=== PATIENT | female | born 1995 | race African-American/Black ===

== ENCOUNTER 2016-02-13 21:48 | Emergency (ER) | payer OTHER ==
[~2016-02-13] VITALS: Ht 177.8 cm; Wt 142.9 kg
[~2016-02-13 21:48] MED LIST: ALBUTEROL0.09 MG/Ac INH; EC NAPROSYN500 MG PO; MELOXICAM7.5 MG PO; NKHM PO; PERCOCET 325 MG1 TA6 PO; PREDNICOT20 MG PO; PROAIR HFA AER; ULTRAM50 MG PO; ZITHROMAX Z PA250 MG PO; ZYRTEC10 M1 PO
[2016-02-13] MEDS ORDERED: SEROQUEL50 MG PO (21:58)
[2016-02-13] MEDS ORDERED: ZOLOFT25 MG PO (21:59)
[2016-02-13] MEDS ORDERED: PROAIR HFA8.5 GM INH (21:59)
== END 2016-02-13 23:20 | disposition home or self-care (01) ==
LOC: ED 21:48
DX: S06.2X0A Diffuse traumatic brain injury without loss of consciousness, initial encounter (principal); S50.12XA Contusion of left forearm, initial encounter; V89.2XXA Person injured in unspecified motor-vehicle accident, traffic, initial encounter; Y93.89 Activity, other specified; Y92.413 State road as the place of occurrence of the external cause; Y99.9 Unspecified external cause status

== ENCOUNTER 2016-04-26 15:18 | Emergency (ER) | payer OTHER ==
[~2016-04-26] VITALS: Ht 180.3 cm; Wt 140.6 kg
[~2016-04-26 15:18] MED LIST changes: +PROAIR HFA8.5 GM INH; +SEROQUEL50 MG PO; +ZOLOFT25 MG PO
[2016-04-26] MEDS ORDERED: ZOFRAN ODT4 MG SL (16:37)
[2016-04-26] MEDS ORDERED: ZITHROMAX250 MG PO (16:37)
[2016-04-26] MEDS ORDERED: PREDNISONE10 MG PO (16:39)
== END 2016-04-26 16:46 | disposition home or self-care (01) ==
LOC: ED 15:18
DX: J40 Bronchitis, not specified as acute or chronic (principal); B34.9 Viral infection, unspecified; F17.200 Nicotine dependence, unspecified, uncomplicated

== ENCOUNTER 2016-07-27 15:44 | Emergency (ER) | payer OTHER ==
[~2016-07-27] VITALS: Ht 180.3 cm; Wt 140.6 kg
[~2016-07-27 15:44] MED LIST changes: +PREDNISONE10 MG PO; +ZITHROMAX250 MG PO; +ZOFRAN ODT4 MG SL
[2016-07-27] MEDS ORDERED: TRI-SPRINTEC 281 TA2 PO (15:51)
[2016-07-27] MEDS ORDERED: AUGMENTIN 875-875 MG PO (16:26)
== END 2016-07-27 17:06 | disposition home or self-care (01) ==
LOC: ED 15:44
DX: J01.00 Acute maxillary sinusitis, unspecified (principal); H65.111 Acute and subacute allergic otitis media (mucoid) (sanguinous) (serous), right ear; F17.200 Nicotine dependence, unspecified, uncomplicated; Z79.899 Other long term (current) drug therapy

== ENCOUNTER 2016-08-08 10:24 | Inpatient (IN) | payer OTHER ==
[~2016-08-08] VITALS: Ht 180.3 cm; Wt 137.2 kg
--- NOTE | ~2016-08-08 | O ---
[place], [place] OPERATIVE NOTE [facility]: [id number] UNIT #: [id number] ROOM: [id number] DOCTOR: ABDELRAHMAN PARKER,SHILOH BIRTHDATE: [birth year] DOS: 08/11/2016 HISTORY OF PRESENT ILLNESS: This is 21-year-old female who has presented with abdominal pain, undergoing investigation. The patient expresses with diarrhea. Previous stool studies have been unremarkable. PROCEDURE: Today's procedure part of investigation is colonoscopy plus biopsy. PREMEDICATION: Versed and Diprivan. SCOPE: Olympus forwarding colonoscope 10L video. REPORT: After putting the patient in the left lateral position and after application of lubricant to rectal pouch and digital examination, scope was introduced. Thereafter, under direct visualization, I advanced through the length of colon without difficulty. Evidence of colitis was noticed. This is suspected to be C. diff, multiple biopsies obtained. Air was suctioned out. The patient was extubated, tolerated procedure well. IMPRESSION: Nonspecific colitis, ruling out C. diff colitis with pseudomembranous formation. PLAN AND DISCUSSION: Awaiting biopsy report. We will treat like C. diff so far till the data available. SHILOH QUICK MD CM:OPRECORD:OPERATIVE NOTE [id number] SHILOH QUICK MD 09/01/16 1118 interface
[~2016-08-08 10:24] MED LIST changes: +AUGMENTIN 875-875 MG PO; +TRI-SPRINTEC 281 TA2 PO
[2016-08-08 10:32] VITALS: BP 136/78
[2016-08-08 11:16] LABS: BASO # 0.1 10*3/uL (0.0-0.1); BASO % 0.4 % (0.0-1.0); EOS # 0.1 10*3/uL (0.0-0.4); HEMATOCRIT 39.6 % (37.0-47.0); HEMOGLOBIN 12.9 g/dl (12.0-16.0); IG # 0.1 10*3/uL (0.0-0.1); LYMPH # 1.9 10*3/uL (1.3-4.4); LYMPH % 13.6 % (27.0-41.0); MEAN CELL VOLUME 80.3 fl (81.0-99.0); MEAN CORPUSCULAR HGB 26.2 pg (27.0-31.0); MEAN CORPUSCULAR HGB CONC 32.6 g/dl (33.0-37.0); MEAN PLATELET VOLUME 10.1 fl (9.6-12.3); MONO # 0.8 10*3/uL (0.1-1.0); MONO % 5.5 % (3.0-9.0); NEUT # 11.3 10*3/uL (2.3-7.9); NEUT % 79.1 % (47.0-73.0); PLATELET COUNT AUTOMATED 411 10*3/uL (130-400); RED BLOOD COUNT 4.93 10*6/uL (4.10-5.10); RED CELL DISTRI WIDTH 13.7 % (0-14.5); WHITE BLOOD COUNT 14.2 10*3/uL (4.8-10.8)
[2016-08-08 11:20] LABS: BILIRUBIN 1+ (NEGATIVE); BLOOD 1+ (NEGATIVE); CLARITY TURBID (CLEAR); COLOR YELLOW (YELLOW); GLUCOSE NEGATIVE (NEGATIVE); KETONE NEGATIVE (NEGATIVE); LEUKO ESTERASE NEGATIVE (NEGATIVE); NITRITE NEGATIVE (NEGATIVE); PROTEIN TRACE (NEGATIVE); SPECIFIC GRAVITY >= 1.030 (1.005-1.030); UROBILINOGEN 0.2 E.U./dl (0.2-1.0)
[2016-08-08 11:29] LABS: ALBUMIN 3.5 gm/dl (3.1-4.5); ALKALINE PHOSPHATASE 90 U/L (45-117); BILIRUBIN, TOTAL 0.3 mg/dl (0.2-1.0); BUN 10 mg/dl (7-24); CARBON DIOXIDE 26 mmol/L (21-32); CHLORIDE 107 mmol/L (98-107); EST GLOM FILT AFRICAN AMERICAN > 60 ml/min; GLUCOSE 103 mg/dL (65-99); POTASSIUM 3.8 mmol/L (3.5-5.1); SGOT/AST 12 IU/L (3-35); SGPT/ALT 24 U/L (12-78); SODIUM 142 mmol/L (136-145); TOTAL PROTEIN 7.9 gm/dL (6.4-8.2)
[2016-08-08 11:33] LABS: BACTERIA 4+; URINE REFLEX COMMENT YES (NO)
[2016-08-08 12:39] VITALS: BP 128/79
[2016-08-08 13:30] VITALS: BP 122/66
[2016-08-08 16:00] VITALS: BP 132/82
[2016-08-08 20:00] VITALS: BP 137/77
[2016-08-09] VITALS: BP 121/60
[2016-08-09 07:12] LABS: BASO % 0.2 % (0.0-1.0); EOS # 0.2 10*3/uL (0.0-0.4); EOS % 2.6 % (1.0-4.0); HEMATOCRIT 33.7 % (37.0-47.0); HEMOGLOBIN 10.9 g/dl (12.0-16.0); LYMPH # 2.1 10*3/uL (1.3-4.4); LYMPH % 23.6 % (27.0-41.0); MEAN CELL VOLUME 82.2 fl (81.0-99.0); MEAN CORPUSCULAR HGB 26.6 pg (27.0-31.0); MEAN CORPUSCULAR HGB CONC 32.3 g/dl (33.0-37.0); MEAN PLATELET VOLUME 10.4 fl (9.6-12.3); MONO # 0.6 10*3/uL (0.1-1.0); MONO % 6.4 % (3.0-9.0); NEUT # 5.9 10*3/uL (2.3-7.9); NEUT % 66.7 % (47.0-73.0); RED CELL DISTRI WIDTH 13.7 % (0-14.5); WHITE BLOOD COUNT 8.8 10*3/uL (4.8-10.8)
[2016-08-09 07:14] LABS: PLATELET COUNT AUTOMATED 299 10*3/uL (130-400)
[2016-08-09 07:17] LABS: ALBUMIN 2.7 gm/dl (3.1-4.5); BILIRUBIN, TOTAL 0.3 mg/dl (0.2-1.0); BUN 5 mg/dl (7-24); C-REACTIVE PROTEIN 2.89 MG/DL (0-0.3); CARBON DIOXIDE 22 mmol/L (21-32); CHLORIDE 109 mmol/L (98-107); CHOLESTEROL 152 mg/dL (<200); EST GLOM FILT AFRICAN AMERICAN > 60 ml/min; GLUCOSE 84 mg/dL (65-99); MAGNESIUM 1.6 mg/dL (1.5-2.1); PHOSPHOROUS 3.4 mg/dL (2.5-4.9); POTASSIUM 3.3 mmol/L (3.5-5.1); SGOT/AST 12 IU/L (3-35); SGPT/ALT 20 U/L (12-78); SODIUM 141 mmol/L (136-145); TRIGLYCERIDES 54 mg/dl (<150); VLDL CHOLESTEROL 11 mg/dL (6-40)
[2016-08-09 07:18] LABS: ALKALINE PHOSPHATASE 68 U/L (45-117); TOTAL PROTEIN 6.2 gm/dL (6.4-8.2)
[2016-08-09 07:26] LABS: FREE T4 1.25 ng/dl (0.76-1.46); THYROID STIM HORMONE (HS) 0.962 uIU/ml (0.358-4.75)
[2016-08-09 07:27] LABS: HEMOGLOBIN A1c 5.2 % (4.8-5.6)
[2016-08-09 07:32] LABS: HDL CHOLESTEROL 35 mg/dl (40-60); LDL CHOLESTEROL 106 mg/dL (9-159)
[2016-08-09 08:00] VITALS: BP 124/68
[2016-08-09 08:05] LABS: FOLIC ACID 14.57 ng/mL (>5.38)
[2016-08-09 12:00] VITALS: BP 126/72
[2016-08-09 16:00] VITALS: BP 135/95
[2016-08-09 20:00] VITALS: BP 148/58
[2016-08-10] VITALS: BP 127/78
[2016-08-10 06:10] LABS: BASO % 0.4 % (0.0-1.0); EOS # 0.3 10*3/uL (0.0-0.4); EOS % 3.8 % (1.0-4.0); HEMATOCRIT 32.1 % (37.0-47.0); HEMOGLOBIN 10.3 g/dl (12.0-16.0); LYMPH # 2.8 10*3/uL (1.3-4.4); LYMPH % 37.5 % (27.0-41.0); MEAN CELL VOLUME 81.9 fl (81.0-99.0); MEAN CORPUSCULAR HGB 26.3 pg (27.0-31.0); MEAN CORPUSCULAR HGB CONC 32.1 g/dl (33.0-37.0); MEAN PLATELET VOLUME 10.1 fl (9.6-12.3); MONO # 0.5 10*3/uL (0.1-1.0); MONO % 6.6 % (3.0-9.0); NEUT # 3.9 10*3/uL (2.3-7.9); NEUT % 51.4 % (47.0-73.0); PLATELET COUNT AUTOMATED 265 10*3/uL (130-400); RED BLOOD COUNT 3.92 10*6/uL (4.10-5.10); RED CELL DISTRI WIDTH 13.7 % (0-14.5); WHITE BLOOD COUNT 7.6 10*3/uL (4.8-10.8)
[2016-08-10 06:48] LABS: ALBUMIN 2.6 gm/dl (3.1-4.5); BUN 4 mg/dl (7-24); CARBON DIOXIDE 24 mmol/L (21-32); CHLORIDE 110 mmol/L (98-107); GLUCOSE 84 mg/dL (65-99); MAGNESIUM 1.7 mg/dL (1.5-2.1); POTASSIUM 3.4 mmol/L (3.5-5.1); SGOT/AST 10 IU/L (3-35); SGPT/ALT 16 U/L (12-78); SODIUM 142 mmol/L (136-145)
[2016-08-10 06:50] LABS: ALKALINE PHOSPHATASE 63 U/L (45-117); BILIRUBIN, TOTAL 0.3 mg/dl (0.2-1.0); EST GLOM FILT AFRICAN AMERICAN > 60 ml/min; TOTAL PROTEIN 5.9 gm/dL (6.4-8.2)
[2016-08-10 08:00] VITALS: BP 110/70
[2016-08-10 12:00] VITALS: BP 107/82
[2016-08-10 16:00] VITALS: BP 111/55
[2016-08-10 20:00] VITALS: BP 123/67
[2016-08-11] VITALS (8 sets, daily range): BP systolic 110–149; BP diastolic 51–87
[2016-08-11 06:13] LABS: BASO % 0.2 % (0.0-1.0); EOS # 0.2 10*3/uL (0.0-0.4); HEMATOCRIT 34.1 % (37.0-47.0); LYMPH # 2.6 10*3/uL (1.3-4.4); MEAN CORPUSCULAR HGB 26.4 pg (27.0-31.0); MEAN CORPUSCULAR HGB CONC 32.3 g/dl (33.0-37.0); MEAN PLATELET VOLUME 10.4 fl (9.6-12.3); MONO # 0.6 10*3/uL (0.1-1.0); MONO % 7.1 % (3.0-9.0); NEUT # 5.4 10*3/uL (2.3-7.9); NEUT % 61.2 % (47.0-73.0); PLATELET COUNT AUTOMATED 326 10*3/uL (130-400); RED BLOOD COUNT 4.16 10*6/uL (4.10-5.10); RED CELL DISTRI WIDTH 13.6 % (0-14.5); WHITE BLOOD COUNT 8.9 10*3/uL (4.8-10.8)
[2016-08-11 06:34] LABS: BUN 4 mg/dl (7-24); CARBON DIOXIDE 24 mmol/L (21-32); CHLORIDE 107 mmol/L (98-107); EST GLOM FILT AFRICAN AMERICAN > 60 ml/min; GLUCOSE 88 mg/dL (65-99); POTASSIUM 3.5 mmol/L (3.5-5.1); SODIUM 141 mmol/L (136-145)
[2016-08-12] VITALS: BP 103/73
[2016-08-12 06:18] LABS: BASO % 0.5 % (0.0-1.0); EOS # 0.3 10*3/uL (0.0-0.4); EOS % 3.3 % (1.0-4.0); HEMATOCRIT 33.5 % (37.0-47.0); HEMOGLOBIN 10.7 g/dl (12.0-16.0); LYMPH # 2.9 10*3/uL (1.3-4.4); LYMPH % 36.4 % (27.0-41.0); MEAN CELL VOLUME 82.3 fl (81.0-99.0); MEAN CORPUSCULAR HGB 26.3 pg (27.0-31.0); MEAN CORPUSCULAR HGB CONC 31.9 g/dl (33.0-37.0); MEAN PLATELET VOLUME 10.3 fl (9.6-12.3); MONO # 0.5 10*3/uL (0.1-1.0); MONO % 6.5 % (3.0-9.0); NEUT # 4.2 10*3/uL (2.3-7.9); NEUT % 52.9 % (47.0-73.0); PLATELET COUNT AUTOMATED 323 10*3/uL (130-400); RED BLOOD COUNT 4.07 10*6/uL (4.10-5.10); RED CELL DISTRI WIDTH 13.8 % (0-14.5); WHITE BLOOD COUNT 7.9 10*3/uL (4.8-10.8)
[2016-08-12 06:38] LABS: BUN 5 mg/dl (7-24); CARBON DIOXIDE 26 mmol/L (21-32); CHLORIDE 107 mmol/L (98-107); EST GLOM FILT AFRICAN AMERICAN > 60 ml/min; GLUCOSE 79 mg/dL (65-99); POTASSIUM 3.5 mmol/L (3.5-5.1); SODIUM 142 mmol/L (136-145)
[2016-08-12 08:00] VITALS: BP 122/75
[2016-08-12] MEDS ORDERED: D-1000 185 MG-11 TAB PO (11:12)
[2016-08-12] MEDS ORDERED: VANCOMYCIN250 MG/2.5 PO (11:12)
== END 2016-08-12 12:05 | disposition home or self-care (01) | DRG 871 ==
LOC: ED 10:24 → 5E 12:31 → EDHOLD 12:31 → 5E 12:39
PROVIDERS: Emergency Medicine; Hospitalist; Internal Medicine; Nurse Practitioner Family
PROC: 0DBE8ZX Excision of Large Intestine, Via Natural or Artificial Opening Endoscopic, Diagnostic (ICD-10-PCS; principal; 2016-08-11)
DX: A41.9 Sepsis, unspecified organism (principal); E43 Unspecified severe protein-calorie malnutrition; A04.7 Enterocolitis due to Clostridium difficile; Z68.41 Body mass index [BMI] 40.0-44.9, adult; D47.3 Essential (hemorrhagic) thrombocythemia; B37.3 Candidiasis of vulva and vagina; E66.01 Morbid (severe) obesity due to excess calories; K59.00 Constipation, unspecified; R07.9 Chest pain, unspecified; R03.0 Elevated blood-pressure reading, without diagnosis of hypertension; J45.909 Unspecified asthma, uncomplicated; F31.9 Bipolar disorder, unspecified; F17.210 Nicotine dependence, cigarettes, uncomplicated; G89.29 Other chronic pain; M25.50 Pain in unspecified joint; Z82.49 Family history of ischemic heart disease and other diseases of the circulatory system; R82.71 Bacteriuria; E55.9 Vitamin D deficiency, unspecified

== ENCOUNTER 2017-05-29 19:29 | Emergency (ER) | payer OTHER ==
[~2017-05-29] VITALS: Ht 180.3 cm; Wt 127.0 kg
[~2017-05-29 19:29] MED LIST changes: +D-1000 185 MG-11 TAB PO; +VANCOMYCIN250 MG/2.5 PO
[2017-05-29] MEDS ORDERED: BUPROPION75 MG PO (19:37)
[2017-05-29] MEDS ORDERED: SERTRALINE HYD100 MG PO (19:37)
[2017-05-29] MEDS ORDERED: AMOXICILLIN500 M2 PO (19:38)
== END 2017-05-29 20:41 | disposition home or self-care (01) ==
LOC: ED 19:29
DX: B27.90 Infectious mononucleosis, unspecified without complication (principal); H92.02 Otalgia, left ear; J02.9 Acute pharyngitis, unspecified; Z79.899 Other long term (current) drug therapy

== ENCOUNTER 2017-10-23 14:55 | Emergency (ER) | payer OTHER ==
[~2017-10-23] VITALS: Ht 177.8 cm; Wt 136.1 kg
[~2017-10-23 14:55] MED LIST changes: +AMOXICILLIN500 M2 PO; +BUPROPION75 MG PO; +SERTRALINE HYD100 MG PO
[2017-10-23] MEDS ORDERED: ANAPROX DS550 MG PO (16:38)
== END 2017-10-23 16:54 | disposition home or self-care (01) ==
LOC: ED 14:55
DX: M25.561 Pain in right knee (principal); F17.200 Nicotine dependence, unspecified, uncomplicated; Z79.899 Other long term (current) drug therapy

== ENCOUNTER 2017-11-19 13:04 | Emergency (ER) | payer OTHER ==
[~2017-11-19 13:04] MED LIST changes: +ANAPROX DS550 MG PO
[2017-11-19] MEDS ORDERED: MIRALAX POWDER17 G1 PO ×2 (14:37→14:38)
== END 2017-11-19 14:55 | disposition home or self-care (01) ==
LOC: ED 13:04
DX: K59.00 Constipation, unspecified (principal); J45.909 Unspecified asthma, uncomplicated; G89.29 Other chronic pain; E66.9 Obesity, unspecified; Z79.1 Long term (current) use of non-steroidal anti-inflammatories (NSAID); Z79.899 Other long term (current) drug therapy

== ENCOUNTER → 2022-07-29 | Day surgery (SDC) | payer OTHER ==
[~2022-07-29] VITALS: Ht 180.3 cm; Wt 141.1 kg
[~2022-07-29] MED LIST changes: +MIRALAX POWDER17 G1 PO
[2022-07-29 08:30] VITALS: BP 119/79
[2022-07-29 09:10] VITALS: BP 98/51
[2022-07-29 09:24] VITALS: BP 103/51
[2022-07-29 09:36] VITALS: BP 122/76
== END | disposition home or self-care (01) ==
LOC: SDC 07-26 13:15
PROVIDERS: ATTEND Surgery
DX: R19.4 Change in bowel habit (principal); J45.909 Unspecified asthma, uncomplicated; F31.9 Bipolar disorder, unspecified; Z98.890 Other specified postprocedural states

== ENCOUNTER 2022-10-20 16:55 | Emergency (ER) | payer OTHER ==
[~2022-10-20] VITALS: Ht 180.3 cm; Wt 122.5 kg
[2022-10-20 17:34] LABS: BASO % 0.4 % (0.0-1.0); EOS # 0.1 10*3/uL (0.0-0.4); EOS % 1.1 % (1.0-4.0); HEMATOCRIT 36.2 % (37.0-47.0); LYMPH # 1.9 10*3/uL (1.3-4.4); LYMPH % 26.7 % (27.0-41.0); MEAN CELL VOLUME 81.7 fl (81.0-99.0); MEAN CORPUSCULAR HGB 28.2 pg (27.0-31.0); MEAN CORPUSCULAR HGB CONC 34.5 g/dl (33.0-37.0); MEAN PLATELET VOLUME 9.5 fl (9.6-12.3); MONO # 0.5 10*3/uL (0.1-1.0); MONO % 6.2 % (3.0-9.0); NEUT # 4.7 10*3/uL (2.3-7.9); NEUT % 65.3 % (47.0-73.0); PLATELET COUNT AUTOMATED 402 10*3/uL (130-400); RED BLOOD COUNT 4.43 10*6/uL (4.10-5.10); RED CELL DISTRI WIDTH 12.9 % (0-14.5); WHITE BLOOD COUNT 7.2 10*3/uL (4.8-10.8)
[2022-10-20 18:16] LABS: ALKALINE PHOSPHATASE 86 U/L (46-116); BUN 6 mg/dl (9-23); CHLORIDE 107 mmol/L (98-107); POTASSIUM 3.4 mmol/L (3.4-5.1); SGPT/ALT 12 U/L (10-49); TOTAL PROTEIN 7.2 gm/dL (6.0-8.0)
[2022-10-20] MEDS ORDERED: VISTARIL25 M2 PO (20:22)
== END 2022-10-20 20:29 | disposition home or self-care (01) ==
LOC: ED 16:55
PROVIDERS: Physician Assistant Medical
DX: F41.9 Anxiety disorder, unspecified (principal); F32.A Depression, unspecified; J45.909 Unspecified asthma, uncomplicated; M19.90 Unspecified osteoarthritis, unspecified site; Z98.890 Other specified postprocedural states

== ENCOUNTER → 2022-11-11 | Outpatient (CLI) | payer OTHER ==
[~2022-11-11] MED LIST changes: +VISTARIL25 M2 PO
[2022-11-11 14:18] LABS: VITAMIN D, 25-HYDROXY 16.8 ng/mL (30-100)
[2022-11-11 14:20] LABS: FREE T4 1.11 ng/dl (0.89-1.76)
== END | disposition home or self-care (01) ==
LOC: LAB 12:55
PROVIDERS: ATTEND Nurse Practitioner Family
DX: Z13.220 Encounter for screening for lipoid disorders (principal); R53.82 Chronic fatigue, unspecified

== ENCOUNTER 2022-11-12 19:41 | Emergency (ER) | payer OTHER ==
[~2022-11-12] VITALS: Ht 172.7 cm; Wt 138.3 kg
[2022-11-12 20:11] LABS: BASO % 0.3 % (0.0-1.0); EOS # 0.2 10*3/uL (0.0-0.4); EOS % 2.1 % (1.0-4.0); HEMATOCRIT 39.1 % (37.0-47.0); LYMPH # 2.2 10*3/uL (1.3-4.4); LYMPH % 28.9 % (27.0-41.0); MEAN CELL VOLUME 84.3 fl (81.0-99.0); MEAN CORPUSCULAR HGB CONC 33.2 g/dl (33.0-37.0); MEAN PLATELET VOLUME 9.7 fl (9.6-12.3); MONO # 0.5 10*3/uL (0.1-1.0); MONO % 6.1 % (3.0-9.0); NEUT # 4.9 10*3/uL (2.3-7.9); NEUT % 62.5 % (47.0-73.0); PLATELET COUNT AUTOMATED 381 10*3/uL (130-400); RED BLOOD COUNT 4.64 10*6/uL (4.10-5.10); RED CELL DISTRI WIDTH 12.9 % (0-14.5); WHITE BLOOD COUNT 7.8 10*3/uL (4.8-10.8)
[2022-11-12 20:24] LABS: ACT PARTIAL THROMBO TIME 34.6 SECONDS (20.0-32.1)
[2022-11-12 20:33] LABS: ALKALINE PHOSPHATASE 101 U/L (46-116); BUN 7 mg/dl (9-23); CHLORIDE 106 mmol/L (98-107); LIPASE 23 U/L (12-53); POTASSIUM 3.6 mmol/L (3.4-5.1); SGPT/ALT 16 U/L (10-49); TOTAL PROTEIN 7.8 gm/dL (6.0-8.0)
== END 2022-11-12 21:47 | disposition home or self-care (01) ==
LOC: ED 19:41
PROVIDERS: Internal Medicine
DX: F41.9 Anxiety disorder, unspecified (principal); R07.89 Other chest pain; Z79.899 Other long term (current) drug therapy; Z98.890 Other specified postprocedural states

== ENCOUNTER → 2023-06-22 | Outpatient (CLI) | payer OTHER ==
[2023-06-22 11:16] LABS: BASO % 0.3 % (0.0-1.0); EOS # 0.2 10*3/uL (0.0-0.4); LYMPH # 2.7 10*3/uL (1.3-4.4); LYMPH % 36.7 % (27.0-41.0); MEAN CELL VOLUME 85.3 fl (81.0-99.0); MEAN CORPUSCULAR HGB 27.5 pg (27.0-31.0); MEAN CORPUSCULAR HGB CONC 32.3 g/dl (33.0-37.0); MEAN PLATELET VOLUME 9.6 fl (9.6-12.3); MONO # 0.4 10*3/uL (0.1-1.0); MONO % 5.4 % (3.0-9.0); NEUT # 4.1 10*3/uL (2.3-7.9); NEUT % 55.5 % (47.0-73.0); PLATELET COUNT AUTOMATED 372 10*3/uL (130-400); RED BLOOD COUNT 4.69 10*6/uL (4.10-5.10); RED CELL DISTRI WIDTH 13.5 % (0-14.5); WHITE BLOOD COUNT 7.4 10*3/uL (4.8-10.8)
[2023-06-22 12:02] LABS: ALKALINE PHOSPHATASE 104 U/L (46-116); BUN 10 mg/dl (9-23); CHLORIDE 106 mmol/L (98-107); CHOLESTEROL 156 mg/dL (<200); LDL CHOLESTEROL 104 mg/dL (9-159); SGPT/ALT 22 U/L (5-49); TOTAL PROTEIN 7.6 gm/dL (6.0-8.0); TRIGLYCERIDES 65 mg/dl (<150)
== END ==
LOC: LAB 10:53
PROVIDERS: ATTEND Nurse Practitioner Family
DX: E55.9 Vitamin D deficiency, unspecified (principal); E66.01 Morbid (severe) obesity due to excess calories; M25.50 Pain in unspecified joint; E78.2 Mixed hyperlipidemia; Z82.49 Family history of ischemic heart disease and other diseases of the circulatory system

== ENCOUNTER → 2023-08-03 | Outpatient (CLI) | payer OTHER | END | disposition home or self-care (01) | LOC: LAB 11:07 | PROVIDERS: ATTEND Nurse Practitioner Family | DX: E78.2 Mixed hyperlipidemia (principal); E66.01 Morbid (severe) obesity due to excess calories; Z82.49 Family history of ischemic heart disease and other diseases of the circulatory system ==

== ENCOUNTER → 2024-05-03 | Outpatient (CLI) | payer OTHER ==
[2024-05-03 11:42] LABS: BASO % 0.3 % (0.0-1.0); EOS # 0.2 10*3/uL (0.0-0.4); EOS % 2.9 % (1.0-4.0); MEAN CELL VOLUME 84.9 fl (81.0-99.0); MEAN CORPUSCULAR HGB 26.9 pg (27.0-31.0); MEAN CORPUSCULAR HGB CONC 31.7 g/dl (33.0-37.0); MEAN PLATELET VOLUME 10.1 fl (9.6-12.3); MONO # 0.4 10*3/uL (0.1-1.0); NEUT # 4.2 10*3/uL (2.3-7.9); NEUT % 57.3 % (47.0-73.0); PLATELET COUNT AUTOMATED 399 10*3/uL (130-400); RED BLOOD COUNT 4.83 10*6/uL (4.10-5.10); RED CELL DISTRI WIDTH 13.3 % (0-14.5); WHITE BLOOD COUNT 7.3 10*3/uL (4.8-10.8)
[2024-05-03 11:56] LABS: ALKALINE PHOSPHATASE 119 U/L (46-116); BUN 13 mg/dl (9-23); CHLORIDE 105 mmol/L (98-107); CHOLESTEROL 163 mg/dL (<200); LDL CHOLESTEROL 115 mg/dL (9-159); POTASSIUM 4.1 mmol/L (3.4-5.1); SGPT/ALT 22 U/L (5-49); TOTAL PROTEIN 7.6 gm/dL (6.0-8.0); TRIGLYCERIDES 57 mg/dl (<150)
== END | disposition home or self-care (01) ==
LOC: LAB 10:56
PROVIDERS: ATTEND Nurse Practitioner Family
DX: N93.9 Abnormal uterine and vaginal bleeding, unspecified (principal); L68.0 Hirsutism; Z13.29 Encounter for screening for other suspected endocrine disorder; Z00.00 Encounter for general adult medical examination without abnormal findings; F31.9 Bipolar disorder, unspecified; J30.2 Other seasonal allergic rhinitis; E78.2 Mixed hyperlipidemia; E55.9 Vitamin D deficiency, unspecified; G47.33 Obstructive sleep apnea (adult) (pediatric); J45.909 Unspecified asthma, uncomplicated; E66.01 Morbid (severe) obesity due to excess calories